=== PATIENT | female | born 1960 | race Caucasian/White ===

== ENCOUNTER 2019-03-29 22:40 | Observation (INO) | payer OTHER ==
[2019-03-29 22:57] LABS: #Basophils 0.2 thou/uL (0.0-0.2); #Eosinphils 0.2 thou/uL (0.0-0.7); #Lymphocytes 2.5 thou/uL (1.20-3.40); #Monocytes 0.7 thou/uL (0.11-0.59); #Neutrophils 5.3 thou/uL (1.40-6.50); %Basophils 2.1 % (0.0-1.0); %Eosinophils 1.8 % (0.0-10.0); %Lymphocytes 28.2 % (21.0-51.0); %Monocytes 7.9 % (0.0-10.0); Hemoglobin 17.7 g/dL (12.0-16.0); Mean Corpuscular HGB CONC 34.1 g/dL (32.0-36.0); Mean Corpuscular Hemoglobin 31.4 pg (27.0-31.0); Mean Corpuscular Volume 92.2 fL (78.0-98.0); Mean Platelet Volume 8.1 fL (7.4-10.4); Platelet Count 236 thou/uL (130-400); RBC Distribution Width 12.2 % (11.5-14.5); Red Blood Cell (RBC) Count 5.64 mill/uL (4.20-5.40); White Blood Cell (WBC) Count 8.8 thou/uL (4.8-10.8)
[2019-03-29 23:15] LABS: ALT (SGPT) 21 U/L (8-55); AST (SGOT) 23 U/L (5-34); Alkaline Phosphatase 72 U/L (40-150); Anion Gap 14 mmol/L (10-20); BUN (Urea Nitrogen) 7 mg/dL (9.8-20.1); Bilirubin, Total 0.5 mg/dL (0.2-1.2); CK (CPK) 129 U/L (29-168); Calc. Creatinine Clearance 0 mL/min (70-130); Calcium 9.2 mg/dL (7.8-10.44); Carbon Dioxide 23 mmol/L (22-29); Chloride 108 mmol/L (98-107); Estimated GFR-MDRD Greater than 90; Globulin 2.5 g/dL (2.4-3.5); Glucose 94 mg/dL (70-105); Potassium 3.8 mmol/L (3.5-5.1); Protein, Total 6.5 g/dL (6.0-8.3); Sodium 141 mmol/L (136-145)
--- NOTE | 2019-03-30 00:41 | RAD ---
AP view chest. HISTORY: Chest pain. AP view chest is obtained. The lungs are well aerated. No evidence of active intrathoracic disease se en. No evidence of effusions, pneumonia or pneumothorax seen IMPRESSION: Unremarkable AP view chest.
[2019-03-30] MEDS ORDERED: Ondansetron PF 4 MG/2 ML Vial IVP PRN ×2 (01:32→08:51)
[2019-03-30] MEDS ORDERED: Acetaminophen 325 MG TAB PO PRN ×2 (01:32→08:51)
[2019-03-30] MEDS ORDERED: Ondansetron ODT 4 MG TAB SL PRN (01:32)
[2019-03-30] MEDS ORDERED: Nitroglycerin 2% Ointment 1 INCH/1 GM Packet TOP SCH ×2 (01:45→14:00)
[2019-03-30 01:57] VITALS: BMI 28.5
[2019-03-30 06:35] LABS: Troponin I Less than 0.010 ng/mL (< 0.028)
[2019-03-30] MEDS ORDERED: Ondansetron ODT 4 MG TAB PO PRN (08:51)
[2019-03-30] MEDS ORDERED: hydrALAZINE 20 MG/ML VIAL SLOW IVP PRN (08:51)
[2019-03-30] MEDS ORDERED: Nitroglycerin 0.4 MG TAB (25 Tab Bottle) PO PRN (08:51)
[2019-03-30] MEDS ORDERED: Mag-Al Plus 1200 MG/1200 MG/120 MG/30 ML UDCUP PO PRN (08:52)
[2019-03-30] MEDS ORDERED: Aspirin 325 MG TAB PO SCH ×2 (09:00)
[2019-03-30] MEDS ORDERED: Enoxaparin Sodium 40 MG/0.4 ML SYRINGE SC SCH (09:00)
[2019-03-30] MEDS ORDERED: Famotidine 20 MG TAB PO SCH (09:00)
[2019-03-30 09:19] LABS: Troponin I Less than 0.010 ng/mL (< 0.028)
[2019-03-30] MEDS: Morphine 2 MG/ML SYRINGE SLOW IVP PRN ×2 (09:42→15:42)
--- NOTE | 2019-03-30 12:59 | NM ---
EXAM: Cardiac SPECT HISTORY: Chest pain PROTOCOL: Stress only, single isotope TYPE OF STRESS: Pharmacologic stress with Lexiscan was monitored and interpreted by Dr. Miranda. RADIOPHARMACEUTICAL: 30 mCi technetium 99m-sestamibi injected intravenously FINDINGS: Homogeneous tracer distribution is seen in the myocardial segments on the post stress images. Gated SPECT LVEF: 89% Wall motion exam: Normal IMPRESSION: Normal post stress myocardial perfusion scan.
[2019-03-30] MEDS ORDERED: Regadenoson 0.4 MG/5 ML SYRINGE ONE (14:17)
--- NOTE | 2019-03-30 14:37 | HP ---
The patient currently does not have a primary care physician. CHIEF COMPLAINT: "My chest is hurting." HISTORY OF PRESENT ILLNESS: Ms. Reyes is a very pleasant 58-year-old female, who has a history of asthma. She is also a long-time smoker. She says that last week, she started having some soreness in her chest and coughing, which she attributed to bad allergies. She had gone to the [facility] in the [place] [facility] and says that they had given her some antibiotics and a medicine for "allergies as well as asthma." She says that the congestion got better as well as the cough, but then yesterday she was at work when she started having some pain and pressure in the center of her chest. It kind of radiated outward on both sides and into her left arm. She cannot really rate it, but says that it was fairly severe. She has a neighbor who is a nurse, who came and took her blood pressure and was told that it was high. She also noted some nausea as well, and she says she also broke out into a sweat. Her neighbor suggested that she come to the ER for evaluation. In the ER, she had an EKG done and troponins, which were essentially negative, but her pain did improve with the placement of nitroglycerin and a sublingual nitroglycerin, and she is being admitted for possible acute coronary syndrome. The patient also notes some cramping in her legs at different times, not any time particular. She denies any leg swelling. No PND. No orthopnea. No palpitations. REVIEW OF SYSTEMS: CONSTITUTIONAL: There has been no fevers or chills. No night sweats. No weight loss. HEENT: She denies any headaches. No dizziness. No visual changes. No sore throat, rhinorrhea. NECK: No neck pain. No adenopathy. PULMONARY: She has had some cough off and on, which has been essentially nonproductive. No wheezing. No hemoptysis. CARDIOVASCULAR: As in history of present illness. GASTROINTESTINAL: She denies any abdominal pain. She did have some nausea, but no vomiting. No hematemesis. No melena. GENITOURINARY: No urinary frequency, hematuria. No hesitancy. MUSCULOSKELETAL: She does complain of some muscle cramping off and on, usually when she changes positions, but not nocturnal cramping of the muscles. NEUROLOGIC: There is no ataxia. No seizures. SKIN AND INTEGUMENT: No skin changes. No rash. ENDOCRINE: No heat intolerance or cold intolerance. PAST MEDICAL HISTORY: Significant for asthma, hypertension, and chronic low back. PAST SURGICAL HISTORY: She has had a cholecystectomy and hysterectomy as well as knee surgery. ALLERGIES: PENICILLIN AND SULFA. SOCIAL HISTORY: She smokes about half a pack a day for 40 years. She admits to alcohol use of 6 to 7 beers a day. 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 FAMILY HISTORY: Significant for her mother had strokes as well as heart disease and diabetes. CURRENT MEDICATIONS: Include Singulair 10 mg daily, clarithromycin 500 mg daily, and a ProAir inhaler as needed. PHYSICAL EXAMINATION: GENERAL: She is alert and oriented. She appears to be in no acute distress. She is well developed and well nourished. VITAL SIGNS: Blood pressure is 144/85, heart rate is 66, respiratory rate of 19, temperature is 98.3. HEENT: Pupils are equal, round, and reactive to light. Extraocular muscles are intact. Her sclerae are anicteric. Throat, no erythema, no exudates. NECK: No adenopathy. No bruits. LUNGS: Clear to auscultation. There is no wheezing, no rales, no rhonchi. CARDIOVASCULAR: She has a normal S1, S2. I did not appreciate an S3 or S4. No murmurs, clicks. No rubs. ABDOMEN: Obese. It is soft. It is nontender, nondistended. Positive for bowel sounds. There is no rebound, no guarding, no organomegaly. EXTREMITIES: There is no edema. No calf tenderness. No joint effusions. NEUROLOGIC: Cranial nerves 2 through 12 are intact. Her muscle strength is intact. SKIN AND INTEGUMENT: No skin changes. No rash. LABORATORY RESULTS: The white blood cell count 8.8, hemoglobin 17.7, hematocrit 52, platelet count 236. Sodium is 141, potassium is 3.8, chloride is 108, CO2 is 23, BUN of 7, creatinine is 0.63, glucose is 94. Troponin was less than 0.01. IMAGING STUDIES: She had an EKG, which was read as sinus rhythm, the rate is 73. There was some evidence of left atrial enlargement. Also, on chest x-ray, which is by my reading, there is no evidence of any cardiomegaly, no infiltrates or effusions. ASSESSMENT: 1. This is a pleasant 58-year-old female, who presents to the emergency room complaining of chest pain. She states she has a family history of coronary artery disease as well as she is a long-time smoker and it appears that she possibly may have hypertension. She will be placed in observation. We will continue to trend her cardiac enzymes and get a Cardiolite stress test as well as a lipid panel to help assess her risk of coronary artery disease. 2. Asthma. Continue albuterol nebs p.r.n. 3. Tobacco abuse. She has been counseled briefly on the need to stop smoking and further recommendations to follow. Job ID: [id number]
[2019-03-30 17:03] VITALS: BP 127/80; TEMP 97.7
--- NOTE | 2019-03-31 10:57 | DIS ---
DATE OF ADMISSION: 03/29/2019 DATE OF DISCHARGE: 03/30/2019 The patient currently does not have a primary care physician. DISCHARGE DISPOSITION: Home. PRIMARY DISCHARGE DIAGNOSES: 1. Chest pain, probable noncardiac. 2. Suspected gastroesophageal reflux disease. 3. Elevated blood pressure without hypertension. 4. Tobacco abuse. DISCHARGE MEDICATIONS: Include; 1. Protonix 40 mg daily. 2. Singulair 10 mg at bedtime. 3. Biaxin 500 mg extended release daily. 4. ProAir HFA 2 puffs q.4 hours as needed. CODE STATUS: Full code. ALLERGIES: TO PENICILLIN AND SULFA. PROCEDURES DONE DURING THE ADMISSION: The patient had a nuclear stress test, which was negative for any reversible ischemia. The EF was calculated at 89%. She also had lipid panel done in which the total cholesterol was 164, LDL was 92, HDL of 54. HOSPITAL COURSE: Ms. Reyes is a pleasant 58-year-old female, who was admitted to the hospital with complaints of chest pain, which was atypical in presentation; however, due to her history of smoking as well as family history of heart disease, she was admitted to observation. She was ruled out and a nuclear stress test was done as well as checking her lipid panel. Her stress test was negative and her chest pain resolved. I suspect that the chest pain could be related to gastroesophageal reflux disease. She has been encouraged to get a primary care physician to have adequate followup and her daughter who is at the bedside says that she would help in that regard. Therefore, the patient is clinically stable and can be discharged home. Job ID: [id number]
== END 2019-03-30 18:50 | disposition home or self-care (01) ==
LOC: SCSER 22:40 → 2NO 23:35
PROVIDERS: ADMIT Internal Medicine; ATTEND Internal Medicine
DX: R07.89 Other chest pain (principal); J45.909 Unspecified asthma, uncomplicated; F17.210 Nicotine dependence, cigarettes, uncomplicated; I10 Essential (primary) hypertension; G89.29 Other chronic pain; M54.5 Low back pain; Z79.899 Other long term (current) drug therapy; Z88.0 Allergy status to penicillin; Z88.2 Allergy status to sulfonamides
CPT/HCPCS: 36415; 36416; 71045; 78452; 80053; 80061; 82550; 83690; 84484; 85025; 93005; 93017; 96372; 96374; 96376; A9500; G0378; J1650; J2270; J2785

== ENCOUNTER 2019-04-17 04:39 | Emergency (ER) | payer OTHER ==
[2019-04-17] MEDS ORDERED: Ketorolac Tromethamine 60 MG/2 ML VIAL ONE (04:59)
--- NOTE | 2019-04-17 07:46 | CT ---
CT PELVIS NONCONTRAST: Date: 04/17/19 INDICATION: Fall with right hemipelvic injury and pain. FINDINGS: The hip joints are maintained in alignment bilaterally. There is minimally displaced fracture lucency of the right pubic body with mild diastasis of the symphysis pubis. The adjacent unopacified urinary bladder is intact. There is no pelvic ascites or significant hematoma. No pathologic diastasis of ei ther sacroiliac joint. Incidental note of moderate degenerative hypertrophy of the lower lumbar facet joints. There is a nonaggressive appearing lucency of the posterior left ilium, small in size. Incid ental note of atherosclerosis. There is motion artifact which distorts anatomy. IMPRESSION: 1. Subtle fracture lucency is present involving the right pubic body with slight displacement and mi ld diastasis of the adjacent symphysis pubis. 2. No post-traumatic dislocation of either hip joint. 3. Additional details are described above. POS: JOVNAI
== END 2019-04-17 06:53 | disposition home or self-care (01) ==
LOC: ERS 04:39
DX: S32.501A Unspecified fracture of right pubis, initial encounter for closed fracture (principal); F32.9 Major depressive disorder, single episode, unspecified; K21.9 Gastro-esophageal reflux disease without esophagitis; J45.909 Unspecified asthma, uncomplicated; I10 Essential (primary) hypertension; F17.210 Nicotine dependence, cigarettes, uncomplicated; Z79.899 Other long term (current) drug therapy; W01.0XXA Fall on same level from slipping, tripping and stumbling without subsequent striking against object, initial encounter
CPT/HCPCS: 72192; 96372; J1885

== ENCOUNTER 2020-03-31 08:25 | Outpatient (CLI) | payer OTHER ==
--- NOTE | 2020-03-31 09:01 | ULT ---
EXAM: US Abdomen Limited CLINICAL HISTORY: Dehydration. Lactic acidosis.. COMPARISON: None. FINDINGS: Pancreas: The head of the pancreas has a normal echotexture. The remainder the pancreas is obscured by bowel gas Liver:Hepatic parenchyma has a normal echotexture. No hepatic masses or intrahepatic biliary dilatati on. Right hepatic lobe: 19.6 cm Gallbladder: Gallbladder is not appreciated. Correlate for previous cholecystectomy. Vazquez's sign:Not applicable Portal Vein: Patent. Appropriate directional flow Bile ducts: Suboptimal evaluation of the common bile duct. Common hepatic duct appears be 0.6 cm Right kidney: No hydronephrosis. Right kidney measures 5.1 x 4.9 x 11.3 cm in length. IMPRESSION: 1. Mild hepatomegaly 2. Suboptimal evaluation of the common bile duct. Common hepatic duct is 0.6 cm.
== END 2020-03-31 08:26 | disposition home or self-care (01) ==
LOC: ULT 08:25
PROVIDERS: ATTEND Student in an Organized Health Care Education/Training Program
DX: R74.0 Nonspecific elevation of levels of transaminase and lactic acid dehydrogenase [LDH] (principal); R16.0 Hepatomegaly, not elsewhere classified
CPT/HCPCS: 76705